=== PATIENT | male | born 1990 | race Caucasian/White ===

== ENCOUNTER 2016-11-12 17:06 | Inpatient (IN) | payer OTHER ==
[2016-11-12 19:52] VITALS: BMI 25.0
--- NOTE | 2016-11-12 20:27 | HP ---
COWS - Scale Resting Pulse: 2= [place] 101-120 Sweatin= Chills/Flushing Restless Observation: 3= Extraneous Movement Pupil Size: 1= Pupils >than Normal Bone or Joint Aches: 2= Severe Diffuse Aches Runny Nose/ Eye Tearin= Runny Nose/Eyes GI Upset > 30mins: 1= Stomach Cramp Tremor Observation: 2= Slight Tremor Visible Yawning Observation: 1= 1-2x During Session Anxiety or Irritability: 2=Irritable/Anxious Goose Flesh Skin: 3=Piloerection COWS Score: 20 Admission ROS S - HPI Chief Complaint: WITHDRAWAL SYMPTOMS Allergies/Adverse Reactions: Allergies Allergy/AdvReac Type Severity Reaction Status Date / Time No Known Allergies Allergy Verified 11/12/16 19:52 History of Present Illness: 26 Y.O. MAN WITH A 7 YEAR HISTORY OF OPIATE DEPENDENCE IS SEEKING DETOX. HE COMPLETED DETOX AND REHAB AT OTHER FACILITIES PREVIOUSLY AND REPORTS HAVING A 2 YEAR PERIOD OF SOBRIETY. HE RELAPSED WITHIN THE LAST YEAR. Exam Limitations: No Limitations - Ebola screening Have you traveled outside of the country in the last 21 days: No Have you had contact with anyone from an Ebola affected area: No Have you been sick,other than usual withdrawal symptoms: No Do you have a fever: No - Review of Systems Constitutional: Chills, Diaphoresis, Changes in sleep, Unintentional Wgt. Loss EENT: reports: Tearing Respiratory: reports: No Symptoms reported Cardiac: reports: No Symptoms Reported GI: reports: Poor Appetite : reports: Burning Musculoskeletal: reports: Back Pain Integumentary: reports: No Symptoms Reported Neuro: reports: Tingling, Tremors Endocrine: reports: No Symptoms Reported Hematology: reports: No Symptoms Reported Psychiatric: reports: Orientated x3 Other Systems: Reviewed and Negative Patient History - Patient Medical History Hx Anemia: No Hx Asthma: No Hx Chronic Obstructive Pulmonary Disease (COPD): No Hx Cancer: No Hx Cardiac Disorders: No Hx Congestive Heart Failure: No Hx Hypertension: No Hx Hypercholesterolemia: No Hx Pacemaker: No HX Cerebrovascular Accident: No Hx Seizures: No Hx Dementia: No Hx Diabetes: No Hx Gastrointestinal Disorders: No Hx Liver Disease: No Hx Genitourinary Disorders: No Hx Sexually Transmitted Disorders: No Hx Renal Disease (ESRD): No Hx Thyroid Disease: No Hx Human Immunodeficiency Virus (HIV): No Hx Hepatitis C: No Hx Depression: No Hx Suicide Attempt: No Hx Bipolar Disorder: No Hx Schizophrenia: No - Patient Surgical History Past Surgical History: No Hx Neurologic Surgery: No Hx Cataract Extraction: No Hx Cardiac Surgery: No Hx Lung Surgery: No Hx Breast Surgery: No Hx Breast Biopsy: No Hx Abdominal Surgery: No Hx Appendectomy: No Hx Cholecystectomy: No Hx Genitourinary Surgery: No Hx Section: No Hx Orthopedic Surgery: Yes (RIGHT SHOULDER ) Anesthesia Reaction: No - PPD History Previous Implant?: Yes Documented Results: Negative w/o proof PPD to be Administered?: Yes - Reproductive History Patient is a Female of Child Bearing Age (11 -55 yrs old): No - Smoking Cessation Smoking history: Current every day smoker Have you smoked in the past 12 months: Yes Aproximately how many cigarettes per day: 20 Hx Chewing Tobacco Use: No Initiated information on smoking cessation: Yes 'Breaking Loose' booklet given: 11/12/16 - Substance & Tx. History Hx Alcohol Use: No Hx Substance Use: Yes Substance Use Type: Opiates Hx Substance Use Treatment: Yes (DETOX AND REHAB ) - Substances Abused OXYCODONE Route: Oral Frequency: Daily Amount used: 200mg Age of first use: 19 Date of Last Use: 11/11/16 Family Disease History - Family Disease History Family History: Denies Admission Physical Exam S - Vital Signs Vital Signs: Vital Signs - 24 hr 11/12/16 19:45 Temperature 99.3 F Pulse Rate 111 H Respiratory 20 Rate Blood Pressure 131/80 - Physical General Appearance: Yes: Tremorous, Irritable, Sweating, Anxious HEENTM: Yes: Normal ENT Inspection, Normocephalic, Normal Voice Respiratory: Yes: Chest Non-Tender, Lungs Clear, Normal Breath Sounds, No Respiratory Distress, No Accessory Muscle Use Neck: Yes: No masses,lesions,Nodules, Trachea in good position Breast: Yes: Breast Exam Deferred Cardiology: Yes: Regular Rhythm, Tachycardia Abdominal: Yes: Normal Bowel Sounds, Non Tender, Flat Genitourinary: Yes: Within Normal Limits Back: Yes: Normal Inspection Musculoskeletal: Yes: Back pain Extremities: Yes: Normal Inspection, Normal Range of Motion, Non-Tender Neurological: Yes: Alert, Normal Mood/Affect, Normal Response Integumentary: Yes: Dry, Warm Lymphatic: Yes: Within Normal Limits - Diagnostic (1) Opioid dependence with withdrawal Current Visit: Yes Status: Chronic Cleared for Admission [facility] - Detox or Rehab [facility] Level of Care: Medically Managed Detox Regimen/Protocol: Methadone [facility] Breath Alcohol Content Breath Alcohol Content: 0 Urine Drug Screen - Results Drug Screen Negative: No Urine Drug Screen Results: OXY-Oxycodone
[2016-11-12] MEDS ORDERED: MENTHOL/PHENOL 1 EACH UD MM PRN (20:32)
[2016-11-12] MEDS ORDERED: IBUPROFEN 400 MG TABLET (FP) PO PRN (20:32)
[2016-11-12] MEDS ORDERED: ACETAMINOPHEN 325 MG TABLET (FP) PO PRN (20:32)
[2016-11-12] MEDS ORDERED: MAG HYDROX/AL HYDROX/SIMETH 30 ML UNIT-DOSE CUP PO PRN (20:32)
[2016-11-12] MEDS ORDERED: hydrOXYzine PAMOATE 50 MG CAPSULE (FP) PO PRN (20:32)
[2016-11-12] MEDS ORDERED: MAGNESIUM CITRATE 300 ML BOTTLE PO PRN (20:32)
[2016-11-12] MEDS ORDERED: guaiFENesin/D-METHORPHAN HB 10 ML UNIT-DOSE CUPS PO PRN (20:32)
[2016-11-12] MEDS ORDERED: P-EPHED 60MG/TRIPROLIDI 2.5MG TABLET PO PRN (20:32)
[2016-11-12] MEDS ORDERED: diphenhydrAMINE HCL 50 MG CAPSULE PO PRN (20:32)
[2016-11-12] MEDS ORDERED: METHADONE HCL 10 MG TABLET (FOR DETOX USE ONLY) PO ONE ×2 (20:32→23:00)
[2016-11-12] MEDS ORDERED: MAGNESIUM HYDROX 2400MG/30ML ORAL SUSPENSION 30 ML CUP PO PRN (20:32)
[2016-11-12] MEDS ORDERED: LOPERAMIDE HCL 2 MG CAPSULE PO PRN (20:32)
[2016-11-12] MEDS ORDERED: METHADONE HCL 10 MG TABLET (FOR DETOX USE ONLY) ONE (22:59)
[2016-11-12] MEDS: diazePAM 5 MG TABLET PO PRN (23:00)
[2016-11-12] MEDS: THIAMINE HCL 100 MG TABLET (FP) PO SCH (23:01)
[2016-11-13] MEDS: diazePAM 5 MG TABLET PO PRN ×4 (05:18→22:13)
[2016-11-13 09:58] LABS: MCH 28.9 pg (25.7-33.7); MCHC 33.8 g/dl (32.0-35.9); MEAN CELL VOLUME 85.3 fl (80-96); PLATELET COUNT 218 K/MM3 (134-434); RDW 12.9 % (11.9-15.9); WHITE BLOOD COUNT 11.9 K/mm3 (4.0-10.0)
[2016-11-13] MEDS ORDERED: METHADONE HCL 10 MG TABLET (FOR DETOX USE ONLY) PO ONE (10:00)
--- NOTE | 2016-11-13 10:05 | PN ---
[facility] COWS - Scale Resting Pulse: 1= NM 81-100 Sweatin=Flushed/Facial Moisture Restless Observation: 1= Difficult to Sit Still Pupil Size: 0= Normal to Room Light Bone or Joint Aches: 1= Mild Discomfort Runny Nose/ Eye Tearin= Nasal Congestion GI Upset > 30mins: 1= Stomach Cramp Tremor Observation of Outstretched Hands: 2= Slight Tremor Visible Yawning Observation: 1= 1-2x During Session Anxiety or Irritability: 2=Irritable/Anxious Goose Flesh Skin: 0=Smooth Skin COWS Score: 12 [facility] Progress Note (SOAP) Subjective: Sweating,anxiety,tremors,interrupted sleep,restless,muscle aches. Objective: 11/13/16 10:02 Vital Signs - 8 hr 11/13/16 11/13/16 11/13/16 02:10 03:22 05:57 Temperature 97.2 F L Pulse Rate 94 H Respiratory 18 18 18 Rate Blood Pressure 122/82 Assessment: 11/13/16 10:03 Withdrawal sx. Plan: Continue detox
[2016-11-13] MEDS: PRENATAL VITAMINS W/ FOLIC ACID TABLET (FP) PO SCH (10:11)
[2016-11-13] MEDS: NICOTINE 21 MG/24 HOURS TOPICAL PATCH TD SCH (10:11)
[2016-11-13 10:32] LABS: ALBUMIN 3.8 g/dl (3.4-5.0); ALK PHOS 66 U/L (45-117); ANION GAP 14 (8-16); BILIRUBIN,TOTAL 0.8 mg/dL (0.2-1.0); CO2 25 mmol/L (21-32); CREATININE 0.9 mg/dL (0.7-1.3); GLUCOSE,RANDOM 113 mg/dL (74-106); SGOT/AST 18 U/L (15-37); SGPT/ALT 55 U/L (12-78); TOT PROT 6.5 g/dl (6.4-8.2)
--- NOTE | 2016-11-13 13:42 | EKG ---
Test Reason : Blood Pressure : / mmHG Vent. Rate : 075 BPM Atrial Rate : 075 BPM P-R Int : 120 ms QRS Dur : 108 ms QT Int : 376 ms P-R-T Axes : 051 057 051 degrees QTc Int : 419 ms SINUS RHYTHM WITH OCCASIONAL PREMATURE VENTRICULAR COMPLEXES AND PREMATURE ATRIAL COMPLEXES INCOMPLETE RIGHT BUNDLE BRANCH BLOCK BORDERLINE ECG NO PREVIOUS ECGS AVAILABLE Confirmed by KENISHA OLSEN MD ([id number]) on 11/13/2016 1:42:02 PM Referred By: Confirmed By:KENISHA OLSEN MD
[2016-11-13 18:48] LABS: URINE APPEARANCE CLEAR; URINE BILIRUBIN NEGATIVE (NEGATIVE); URINE BLOOD NEGATIVE (NEGATIVE); URINE COLOR YELLOW; URINE GLUCOSE (UA) NEGATIVE (NEGATIVE); URINE KETONE NEGATIVE (NEGATIVE); URINE LEUK ESTERASE NEGATIVE (NEGATIVE); URINE NITRITE NEGATIVE (NEGATIVE); URINE PROTEIN NEGATIVE (NEGATIVE); URINE UROBILINOGEN NEGATIVE E.U./dl (0.2-1.0)
[2016-11-13] MEDS: THIAMINE HCL 100 MG TABLET (FP) PO SCH (22:13)
[2016-11-13] MEDS: NICOTINE POLACRILEX 2 MG GUM BC PRN (22:13)
[2016-11-14] MEDS: diazePAM 5 MG TABLET PO PRN ×3 (05:30→14:47)
[2016-11-14] MEDS ORDERED: METHADONE HCL 5 MG TABLET (FOR DETOX USE ONLY) PO ONE (10:00)
[2016-11-14] MEDS: PRENATAL VITAMINS W/ FOLIC ACID TABLET (FP) PO SCH (10:10)
[2016-11-14] MEDS: NICOTINE 21 MG/24 HOURS TOPICAL PATCH TD SCH (10:13)
[2016-11-14] MEDS: NICOTINE POLACRILEX 2 MG GUM BC PRN (13:03)
--- NOTE | 2016-11-14 16:14 | PN ---
[facility] COWS - Scale Resting Pulse: 0= NM 80 or Below Sweatin=Flushed/Facial Moisture Restless Observation: 1= Difficult to Sit Still Pupil Size: 0= Normal to Room Light Bone or Joint Aches: 2= Severe Diffuse Aches Runny Nose/ Eye Tearin= Runny Nose/Eyes GI Upset > 30mins: 2= Nausea/Diarrhea Tremor Observation of Outstretched Hands: 2= Slight Tremor Visible Yawning Observation: 1= 1-2x During Session Anxiety or Irritability: 2=Irritable/Anxious Goose Flesh Skin: 0=Smooth Skin COWS Score: 14 [facility] Progress Note (SOAP) Subjective: Anxiety,tremors,sweating,interrupted sleep,restless Objective: 11/14/16 16:12 Vital Signs - 8 hr 11/14/16 11/14/16 09:28 13:06 Temperature 96.9 F L 97.8 F Pulse Rate 66 80 Respiratory 18 18 Rate Blood Pressure 117/77 107/68 Laboratory Last Values WBC 11.9 K/mm3 (4.0-10.0) H 11/13/16 07:00 RBC 4.99 M/mm3 (4.00-5.60) 11/13/16 07:00 Hgb 14.4 GM/dL (11.7-16.9) 11/13/16 07:00 Hct 42.6 % (35.4-49) 11/13/16 07:00 MCV 85.3 fl (80-96) 11/13/16 07:00 MCHC 33.8 g/dl (32.0-35.9) 11/13/16 07:00 RDW 12.9 % (11.9-15.9) 11/13/16 07:00 Plt Count 218 K/MM3 (134-434) 11/13/16 07:00 MPV 9.0 fl (7.5-11.1) 11/13/16 07:00 Sodium 142 mmol/L (136-145) 11/13/16 07:00 Potassium 3.5 mmol/L (3.5-5.1) 11/13/16 07:00 Chloride 103 mmol/L (98-107) 11/13/16 07:00 Carbon Dioxide 25 mmol/L (21-32) 11/13/16 07:00 Anion Gap 14 (8-16) 11/13/16 07:00 BUN 15 mg/dL (7-18) 11/13/16 07:00 Creatinine 0.9 mg/dL (0.7-1.3) 11/13/16 07:00 Creat Clearance w eGFR > 60 (>60) 11/13/16 07:00 Random Glucose 113 mg/dL (74-106) H 11/13/16 07:00 Calcium 9.0 mg/dL (8.5-10.1) 11/13/16 07:00 Total Bilirubin 0.8 mg/dL (0.2-1.0) 11/13/16 07:00 AST 18 U/L (15-37) 11/13/16 07:00 ALT 55 U/L (12-78) 11/13/16 07:00 Alkaline Phosphatase 66 U/L (45-117) 11/13/16 07:00 Total Protein 6.5 g/dl (6.4-8.2) 11/13/16 07:00 Albumin 3.8 g/dl (3.4-5.0) 11/13/16 07:00 Urine Color Yellow 11/13/16 13:20 Urine Appearance Clear 11/13/16 13:20 Urine pH 5.0 (5.0-8.0) 11/13/16 13:20 Ur Specific [place] 1.024 (1.001-1.035) 11/13/16 13:20 Urine Protein Negative (NEGATIVE) 11/13/16 13:20 Urine Glucose (UA) Negative (NEGATIVE) 11/13/16 13:20 Urine Ketones Negative (NEGATIVE) 11/13/16 13:20 Urine Blood Negative (NEGATIVE) 11/13/16 13:20 Urine Nitrite Negative (NEGATIVE) 11/13/16 13:20 Urine Bilirubin Negative (NEGATIVE) 11/13/16 13:20 Urine Urobilinogen Negative E.U./dl (0.2-1.0) 11/13/16 13:20 Ur Leukocyte Esterase Negative (NEGATIVE) 11/13/16 13:20 RPR Titer Nonreactive (NONREACTIVE) 11/13/16 07:00 labs noted Assessment: 11/14/16 16:12 Withdrawal sx. Plan: continue detox
[2016-11-14] MEDS: THIAMINE HCL 100 MG TABLET (FP) PO SCH (22:19)
[2016-11-15] MEDS: diazePAM 5 MG TABLET PO PRN ×4 (05:14→19:50)
[2016-11-15] MEDS: PRENATAL VITAMINS W/ FOLIC ACID TABLET (FP) PO SCH (09:56)
[2016-11-15] MEDS: NICOTINE 21 MG/24 HOURS TOPICAL PATCH TD SCH (09:57)
[2016-11-15] MEDS ORDERED: METHADONE HCL 5 MG TABLET (FOR DETOX USE ONLY) PO ONE (10:00)
--- NOTE | 2016-11-15 10:11 | PN ---
[facility] Progress Note (SOAP) Subjective: ALERT,IRRITABLE,ANXIOUS,INTERRUPTED SLEEP,PAIN INTHE BODY AND BACK ,TREMOR Objective: 11/15/16 10:09 Vital Signs Temperature 97.1 F L 11/15/16 09:08 Pulse Rate 77 11/15/16 09:08 Respiratory Rate 18 11/15/16 09:08 Blood Pressure 110/77 11/15/16 09:08 O2 Sat by Pulse Oximetry (%) Assessment: 11/15/16 10:09 WITHDRAWAL SYMPTOM Plan: CONTINUE DETOX,ENCOURAGE ORAL FLUID,ENSURE PLUS ,REPEAT CBC IN AM INITIAL WBD IS 11,900
[2016-11-15] MEDS ORDERED: cloNIDine HCL 0.1 MG TABLET PO ONE (10:37)
[2016-11-15] MEDS: CYCLOBENZAPRINE HCL 10 MG TABLET (FP) PO PRN (12:13)
[2016-11-15] MEDS: NICOTINE POLACRILEX 2 MG GUM BC PRN (13:45)
[2016-11-15] MEDS: cloNIDine HCL 0.1 MG TABLET PO SCH (22:23)
[2016-11-15] MEDS: THIAMINE HCL 100 MG TABLET (FP) PO SCH (22:24)
[2016-11-16] MEDS: CYCLOBENZAPRINE HCL 10 MG TABLET (FP) PO PRN ×3 (05:07→22:13)
[2016-11-16 09:43] LABS: MCH 29.1 pg (25.7-33.7); MEAN CELL VOLUME 85.7 fl (80-96); MEAN PLT VOLUME 9.1 fl (7.5-11.1); PLATELET COUNT 183 K/MM3 (134-434); RDW 12.6 % (11.9-15.9); WHITE BLOOD COUNT 8.8 K/mm3 (4.0-10.0)
[2016-11-16] MEDS ORDERED: METHADONE HCL 10 MG TABLET (FOR DETOX USE ONLY) PO ONE (10:00)
[2016-11-16] MEDS: cloNIDine HCL 0.1 MG TABLET PO SCH ×2 (10:21→22:13)
[2016-11-16] MEDS: NICOTINE 21 MG/24 HOURS TOPICAL PATCH TD SCH (10:21)
[2016-11-16] MEDS: PRENATAL VITAMINS W/ FOLIC ACID TABLET (FP) PO SCH (10:21)
[2016-11-16] MEDS: NICOTINE POLACRILEX 2 MG GUM BC PRN ×3 (10:24→18:55)
--- NOTE | 2016-11-16 10:48 | PN ---
S Progress Note (SOAP) Subjective: DECREASED ANXIETY,SWEATS. Objective: 11/16/16 10:48 Vital Signs Temperature 95.3 F L 11/16/16 09:58 Pulse Rate 78 11/16/16 09:58 Respiratory Rate 18 11/16/16 09:58 Blood Pressure 100/68 11/16/16 09:58 O2 Sat by Pulse Oximetry (%) Laboratory Last Values WBC 8.8 K/mm3 (4.0-10.0) 11/16/16 07:00 RBC 5.04 M/mm3 (4.00-5.60) 11/16/16 07:00 Hgb 14.7 GM/dL (11.7-16.9) 11/16/16 07:00 Hct 43.2 % (35.4-49) 11/16/16 07:00 MCV 85.7 fl (80-96) 11/16/16 07:00 MCHC 34.0 g/dl (32.0-35.9) 11/16/16 07:00 RDW 12.6 % (11.9-15.9) 11/16/16 07:00 Plt Count 183 K/MM3 (134-434) 11/16/16 07:00 MPV 9.1 fl (7.5-11.1) 11/16/16 07:00 Sodium 142 mmol/L (136-145) 11/13/16 07:00 Potassium 3.5 mmol/L (3.5-5.1) 11/13/16 07:00 Chloride 103 mmol/L (98-107) 11/13/16 07:00 Carbon Dioxide 25 mmol/L (21-32) 11/13/16 07:00 Anion Gap 14 (8-16) 11/13/16 07:00 BUN 15 mg/dL (7-18) 11/13/16 07:00 Creatinine 0.9 mg/dL (0.7-1.3) 11/13/16 07:00 Creat Clearance w eGFR > 60 (>60) 11/13/16 07:00 Random Glucose 113 mg/dL (74-106) H 11/13/16 07:00 Calcium 9.0 mg/dL (8.5-10.1) 11/13/16 07:00 Total Bilirubin 0.8 mg/dL (0.2-1.0) 11/13/16 07:00 AST 18 U/L (15-37) 11/13/16 07:00 ALT 55 U/L (12-78) 11/13/16 07:00 Alkaline Phosphatase 66 U/L (45-117) 11/13/16 07:00 Total Protein 6.5 g/dl (6.4-8.2) 11/13/16 07:00 Albumin 3.8 g/dl (3.4-5.0) 11/13/16 07:00 Urine Color Yellow 11/13/16 13:20 Urine Appearance Clear 11/13/16 13:20 Urine pH 5.0 (5.0-8.0) 11/13/16 13:20 Ur Specific [place] 1.024 (1.001-1.035) 11/13/16 13:20 Urine Protein Negative (NEGATIVE) 11/13/16 13:20 Urine Glucose (UA) Negative (NEGATIVE) 11/13/16 13:20 Urine Ketones Negative (NEGATIVE) 11/13/16 13:20 Urine Blood Negative (NEGATIVE) 11/13/16 13:20 Urine Nitrite Negative (NEGATIVE) 11/13/16 13:20 Urine Bilirubin Negative (NEGATIVE) 11/13/16 13:20 Urine Urobilinogen Negative E.U./dl (0.2-1.0) 11/13/16 13:20 Ur Leukocyte Esterase Negative (NEGATIVE) 11/13/16 13:20 RPR Titer Nonreactive (NONREACTIVE) 11/13/16 07:00 Assessment: 11/16/16 10:48 WITHDRAWAL SX Plan: CONTINUE DETOX
[2016-11-16] MEDS: THIAMINE HCL 100 MG TABLET (FP) PO SCH (22:13)
[2016-11-17] MEDS: CYCLOBENZAPRINE HCL 10 MG TABLET (FP) PO PRN (05:16)
[2016-11-17] MEDS ORDERED: METHADONE HCL 5 MG TABLET (FOR DETOX USE ONLY) PO ONE (06:00)
[2016-11-17 06:32] VITALS: BP 113/71; PULSE 82; TEMP 98.1
--- NOTE | 2016-11-17 13:28 | DS ---
[facility] Detox Discharge Summary Admission Date: 11/12/16 Discharge Date: 11/17/16 - History Present History: Opioid Dependence Additional Comments: ADVISED PATIENT TO FOLLOW-UP WITH [facility] / REHAB MEDICAL PROVIDER AFTER DISCHARGE FROM DETOX FOR GENERAL MEDICAL ASSESSMENT AND FOR ANY ABNORMAL ADMISSION LAB VALUES. - Physical Exam Results Vital Signs: Vital Signs Temperature 98.1 F 11/17/16 06:31 Pulse Rate 82 11/17/16 06:31 Respiratory Rate 18 11/17/16 06:31 Blood Pressure 113/71 11/17/16 06:31 O2 Sat by Pulse Oximetry (%) Pertinent Admission Physical Exam Findings: WITHDRAWAL SYMPTOMS. Laboratory Last Values WBC 8.8 K/mm3 (4.0-10.0) 11/16/16 07:00 RBC 5.04 M/mm3 (4.00-5.60) 11/16/16 07:00 Hgb 14.7 GM/dL (11.7-16.9) 11/16/16 07:00 Hct 43.2 % (35.4-49) 11/16/16 07:00 MCV 85.7 fl (80-96) 11/16/16 07:00 MCHC 34.0 g/dl (32.0-35.9) 11/16/16 07:00 RDW 12.6 % (11.9-15.9) 11/16/16 07:00 Plt Count 183 K/MM3 (134-434) 11/16/16 07:00 MPV 9.1 fl (7.5-11.1) 11/16/16 07:00 Sodium 142 mmol/L (136-145) 11/13/16 07:00 Potassium 3.5 mmol/L (3.5-5.1) 11/13/16 07:00 Chloride 103 mmol/L (98-107) 11/13/16 07:00 Carbon Dioxide 25 mmol/L (21-32) 11/13/16 07:00 Anion Gap 14 (8-16) 11/13/16 07:00 BUN 15 mg/dL (7-18) 11/13/16 07:00 Creatinine 0.9 mg/dL (0.7-1.3) 11/13/16 07:00 Creat Clearance w eGFR > 60 (>60) 11/13/16 07:00 Random Glucose 113 mg/dL (74-106) H 11/13/16 07:00 Calcium 9.0 mg/dL (8.5-10.1) 11/13/16 07:00 Total Bilirubin 0.8 mg/dL (0.2-1.0) 11/13/16 07:00 AST 18 U/L (15-37) 11/13/16 07:00 ALT 55 U/L (12-78) 11/13/16 07:00 Alkaline Phosphatase 66 U/L (45-117) 11/13/16 07:00 Total Protein 6.5 g/dl (6.4-8.2) 11/13/16 07:00 Albumin 3.8 g/dl (3.4-5.0) 11/13/16 07:00 Urine Color Yellow 11/13/16 13:20 Urine Appearance Clear 11/13/16 13:20 Urine pH 5.0 (5.0-8.0) 11/13/16 13:20 Ur Specific [place] 1.024 (1.001-1.035) 11/13/16 13:20 Urine Protein Negative (NEGATIVE) 11/13/16 13:20 Urine Glucose (UA) Negative (NEGATIVE) 11/13/16 13:20 Urine Ketones Negative (NEGATIVE) 11/13/16 13:20 Urine Blood Negative (NEGATIVE) 11/13/16 13:20 Urine Nitrite Negative (NEGATIVE) 11/13/16 13:20 Urine Bilirubin Negative (NEGATIVE) 11/13/16 13:20 Urine Urobilinogen Negative E.U./dl (0.2-1.0) 11/13/16 13:20 Ur Leukocyte Esterase Negative (NEGATIVE) 11/13/16 13:20 RPR Titer Nonreactive (NONREACTIVE) 11/13/16 07:00 LABS NOTED. - Treatment Hospital Course: Detox Protocol Followed, Detoxed Safely, Responded well, Discharged Condition Good Patient has Accepted a Rehab Referral to: NO -PT. ELECTING TO GO HOME AND ATTEND 12-STEP/AA MEETINGS. - Medication Discharge Medications: Ambulatory Orders NK [No Known Home Medication] 11/12/16 - Diagnosis (1) Opioid dependence with withdrawal Status: Acute - AMA Did Patient Leave Against Medical Advice: No
== END 2016-11-17 09:05 | disposition home or self-care (01) | DRG 897 ==
LOC: YASAS 17:06 → Y3N 19:50
PROVIDERS: ADMIT Internal Medicine; ATTEND Internal Medicine
PROC: HZ2ZZZZ Detoxification Services for Substance Abuse Treatment (ICD-10-PCS; principal; 2016-11-17)
DX: F11.23 Opioid dependence with withdrawal (principal); F17.210 Nicotine dependence, cigarettes, uncomplicated
CPT/HCPCS: 36415; 80053; 81003; 85027; 86593; 93005; 93010